=== PATIENT | female | born 1955 | race Caucasian/White ===

== ENCOUNTER 2025-05-06 10:02 | Outpatient (CLI) | payer MEDICARE | END 2025-05-06 10:03 | disposition home or self-care (01) | LOC: CSHULT 10:02 | PROVIDERS: ATTEND Internal Medicine Gastroenterology | DX: K21.00 Gastro-esophageal reflux disease with esophagitis, without bleeding (principal); Z87.19 Personal history of other diseases of the digestive system; Z86.0100 Personal history of colon polyps, unspecified; R10.11 Right upper quadrant pain; R63.5 Abnormal weight gain; I47.10 Supraventricular tachycardia, unspecified; K76.0 Fatty (change of) liver, not elsewhere classified | CPT/HCPCS: 76705 ==